=== PATIENT | female | born 1995 | race American Indian/Alaskan Native ===

== ENCOUNTER 2021-10-25 13:48 | Outpatient (CLI) | payer MEDICAID ==
[2021-10-25] MEDS ORDERED: LACTATED RINGERS 1,000 ML IV ONE (14:09)
[2021-10-25] MEDS ORDERED: ONDANSETRON 4 MG/2 ML INJ IV ONE (14:10)
[2021-10-25 16:46] LABS: Bacteria,Urine 1+ /HPF (Negative); Bilirubin,Urine NEG (Negative); Blood,Urine NEG (Negative); Calcium Oxalate Crystals,Urine 1+; Color,Urine Yellow (Yellow); Mucus,Urine FEW /HPF; Urobilinogen,Urine < 2.0 mg/dL (<2.0)
[2021-10-25 17:08] VITALS: BP 116/56
== END 2021-10-25 17:22 | disposition home or self-care (01) ==
LOC: TRG 13:48 → APU 13:49 → TRG 17:22
PROVIDERS: ATTEND Obstetrics & Gynecology
DX: O21.2 Late vomiting of pregnancy (principal); O26.892 Other specified pregnancy related conditions, second trimester; R42 Dizziness and giddiness; R51.9 Headache, unspecified; M79.89 Other specified soft tissue disorders; Z3A.22 22 weeks gestation of pregnancy
CPT/HCPCS: 59025; 81001; 96365; J2405; J7120; 96360; 96374

== ENCOUNTER 2021-12-03 18:49 | Outpatient (CLI) | payer MEDICAID ==
[2021-12-03 19:36] VITALS: BP 111/72
[2021-12-03] MEDS ORDERED: LACTATED RINGERS 500 ML IV ONE (20:00)
[2021-12-03 20:47] LABS: Bacteria,Urine 1+ /HPF (Negative); Bilirubin,Urine NEG (Negative); Blood,Urine NEG (Negative); Color,Urine Yellow (Yellow); Mucus,Urine 1+ /HPF; Urobilinogen,Urine < 2.0 mg/dL (<2.0)
== END 2021-12-03 21:21 | disposition home or self-care (01) ==
LOC: TRG 18:49 → LD 18:50 → TRG 21:21
PROVIDERS: ATTEND Obstetrics & Gynecology
DX: O26.893 Other specified pregnancy related conditions, third trimester (principal); Z3A.28 28 weeks gestation of pregnancy
CPT/HCPCS: 81001

== ENCOUNTER 2022-01-13 13:58 | Outpatient (CLI) | payer MEDICAID ==
[2022-01-13] MEDS ORDERED: ONDANSETRON 4 MG/2 ML INJ IV SCH (14:15)
[2022-01-13] MEDS ORDERED: ALBUTEROL 2.5 MG/3 ML NEBU IH SCH (14:16)
[2022-01-13] MEDS ORDERED: LACTATED RINGERS 1,000 ML IV ONE (14:30)
[2022-01-13 14:51] VITALS: BP 118/70
== END 2022-01-13 14:36 | disposition home or self-care (01) ==
LOC: TRG 13:58 → APU 14:00 → TRG 14:36
PROVIDERS: ATTEND Student in an Organized Health Care Education/Training Program
DX: O62.9 Abnormality of forces of labor, unspecified (principal); J45.909 Unspecified asthma, uncomplicated; Z3A.33 33 weeks gestation of pregnancy
CPT/HCPCS: 59025; 94640; 96365; 96366; J2405; J7120; 96360; 96374

== ENCOUNTER 2022-01-30 00:37 | Inpatient (IN) | payer MEDICAID ==
[2022-01-30] MEDS ORDERED: LACTATED RINGERS 1,000 ML IV SCH ×3 (02:00→17:45)
--- NOTE | 2022-01-30 04:30 | Ultrasound Report ---
US OB BPP wo non-stress, US OB bpp ea add exam INDICATION / CLINICAL INFORMATION: Twin gestation - 36wks, GHTN COMPARISON: None available. TECHNIQUE: Using transcutaneous probe, biophysical profile was performed with scarring of bioph ysical variables including respiratory motion, motion, posture and tone, and qualit ative amniotic fluid volume. FINDINGS: TWIN A: BREATHING MOVEMENT = 2 GROSS BODY MOVEMENT = 2 TONE = 2 QUALITATIVE AMNIOTIC FLUID VOLUME = 2 TOTAL BIOPHYSICAL SCORE = 8/8 Fetus lies in cephalic position. heart rate 147. TWIN B: BREATHING MOVEMENT = 2 GROSS BODY MOVEMENT = 2 TONE = 2 QUALITATIVE AMNIOTIC FLUID VOLUME = 2 TOTAL BIOPHYSICAL SCORE = 8/8 Fetus lies in breech position. Heart rate 147. IMPRESSION: 1. Twin gestation. Each fetus scores 8/8. Signer Name: Berto Sparks II, MD Signed: 01/30/2022 4:25 AM Workstation Name: [id number]
[2022-01-30 04:41] LABS: Hematocrit 35.3 % (30.3-42.9); Hemoglobin 11.1 gm/dl (10.1-14.3); Mean Corpuscular HGB Conc 31 % (30-34); Mean Corpuscular Volume 83 fl (79-97); Platelet Count 237 K/mm3 (140-440); Red Blood Count 4.26 M/mm3 (3.65-5.03); Red Cell Distribution Width 17.8 % (13.2-15.2)
[2022-01-30 04:58] LABS: Alanine Aminotransferase 12 units/L (7-56); Uric Acid 5.2 mg/dL (3.5-7.6)
[2022-01-30 05:55] LABS: Bilirubin,Urine NEG (Negative); Blood,Urine NEG (Negative); Color,Urine Straw (Yellow); Urobilinogen,Urine < 2.0 mg/dL (<2.0)
[2022-01-30 06:12] LABS: Bacteria,Urine 1+ /HPF (Negative)
[2022-01-30] MEDS ORDERED: ONDANSETRON 4 MG/2 ML INJ IV PRN ×3 (06:38→18:38)
[2022-01-30] MEDS ORDERED: ACETAMINOPHEN 325 MG TAB PO PRN ×2 (06:38→17:54)
[2022-01-30] MEDS ORDERED: DOCUSATE SODIUM 100 MG CAP PO PRN (06:38)
--- NOTE | 2022-01-30 06:43 | History and Physical Report ---
History of Present Illness Date of examination: 01/30/22 Chief complaint: presented to triage for contractions History of present illness: EDC Calculations by LMP: 02/25/2022 Past History : 2 Term Births: 0 Premature Births: 0 Living Children: 0 Para: 0 Mult. Births: 0 Prev : 0 Aborta: 1 Elect. Ab: 1 Spont. Ab: 0 Ectopics: 0 # 1 Delivery date: 08/2016 Weeks Gestation: 6 Delivery type: EAB Past Medical History: Reviewed history from 04/01/2021 and no changes required: Asthma Past Surgical History: Reviewed history from 05/07/2018 and no changes required: D&C:EAB Tonsillectomy (04/2018) Social History: Patient is single Student [employer] Smoking History: Patient has never smoked. 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: Student at [employer] Genetic History Congenital Heart Defect: Mom: no Dad: no Diandra Disease: Mom: no Dad: no Thalassemia Mom: yes Dad: no Comments: Aunt Neural Tube Defect Mom: no Dad: no Down's Syndrome Mom: no Dad: no Jay-Sachs Mom: no Dad: no Sickle Cell Disease/Trait Mom: yes Dad: no Comments: Mother trait Hemophilia Mom: no Dad: no Muscular Dystrophy Mom: no Dad: no Cystic Fibrosis Mom: no Dad: no Jerome Chorea Mom: no Dad: no Mental Retardation Mom: no Dad: no Fragile X Mom: no Dad: no Other Genetic/Chromosomal Disorder Mom: no Dad: no Child w/other defect Mom: no Dad: no Enviromental Exposures Xray Exposure: yes Medication, drug, or alcohol use since LMP: no Exposure to Cat Liter: no Active Medications (reviewed today): promethazine 25 mg tablet (promethazine) Take 1 tablet by mouth every six hours as needed for nausea ACYCLOVIR 400 MG ORAL TABLET (ACYCLOVIR) 1 po tid x 5days prn Current Allergies (reviewed today): No known allergies Past History Past Medical History: other (see HPI) Past Surgical History: other (see HPI) 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) Family/Genetic History: other (see HPI) Social history: no significant social history - Obstetrical History Expected Date of Delivery: 02/25/22 Actual Gestation: 36 Week(s) 2 Day(s) : 2 Para: 0 Hx # Term Pregnancies: 0 Number of Pregnancies: 0 Spontaneous Abortions: 0 Induced : 1 Number of Living Children: 0 Medications and Allergies Allergies Allergy/AdvReac Type Severity Reaction Status Date / Time peanut AdvReac Severe Anaphylaxis Verified 10/25/21 14:08 shellfish derived AdvReac Severe Anaphylaxis Verified 10/25/21 14:08 Active Meds: Active Medications Acetaminophen (Acetaminophen 325 Mg Tab) 650 mg PO Q4H PRN PRN Reason: Pain MILD(1-3)/Fever >100.5/RODGERS Docusate Sodium (Docusate Sodium 100 Mg Cap) 100 mg PO Q12H PRN PRN Reason: Constipation Famotidine (Famotidine 20 Mg/2 Ml Inj) 20 mg IV QDAY [facility] Lactated Ringer's (Lactated Ringers) 1,000 mls @ 150 mls/hr IV DIRECT CHRISTIANO Last Admin: 01/30/22 04:32 Dose: 150 mls/hr Labetalol HCl (Labetalol 200 Mg Tab) 200 mg PO BID [facility] Multivitamins/Iron/Calcium ( Dxf19-An Fumarate-Folic Acid Vit Tab) 1 each PO QDAY [facility] Ondansetron HCl (Ondansetron 4 Mg/2 Ml Inj) 4 mg IV Q6H PRN PRN Reason: Nausea And Vomiting Sodium Chloride (Sodium Chloride 0.9% 10 Ml Flush Syringe) 10 ml IV PRN PRN PRN Reason: LINE FLUSH Review of Systems All systems: negative - Vital Signs Vital signs: Vital Signs Temp Pulse BP 98.6 F 75 142/90 01/30/22 01:20 01/30/22 01:20 01/30/22 01:20 Temp Pulse Resp BP Pulse Ox 98.6 F 72 146/83 100 01/30/22 01:20 01/30/22 06:11 01/30/22 06:03 01/30/22 06:11 - Physical Exam Breasts: Positive: normal Cardiovascular: Regular rate Lungs: Positive: Normal air movement Abdomen: Positive: normal appearance, soft Genitourinary (Female): Positive: normal external genitalia, normal perenium Vulva: both: normal Vagina: Positive: normal moisture Uterus: Positive: normal size, normal contour Anus/Rectum: Positive: normal perianal skin Extremities: Positive: edema (1+ bilateral feet) Deep Tendon Reflex Grade: Normal +2 - Obstetrical FHR: category 1 (x2) Uterine Contraction Monitor Mode: External Cervical Dilatation: 1 (per triage nurse) Uterine Contraction Pattern: Irregular Uterine Tone Measurement Phase: Contraction Uterine Contraction Intensity: Mild Results Result Diagrams: 01/30/22 04:15 01/30/22 04:15 Abnormal lab results 01/30/22 01/30/22 Range/Units 04:15 04:15 MCH 26 L (28-32) pg RDW 17.8 H (13.2-15.2) % Creatinine 0.5 L (0.6-1.2) mg/dL Lactate Dehydrogenase 293 H (91-180) units/L All other labs normal. Assessment and Plan 27y/o presented to triage @ 36w2d, di/di twin gestation with ctx. she is scheduled for a c/s 02/09 per [facility] recommendations. Pt seeing [facility] for complicated by htn (dx during this ) and twin gestation. Initially she presented for ctx, cervix is not laboring. both babies CAT 1, BPP 8/8. b/p noted 140's/80-90's. Pre-e labs NL with exception of small proteinuria. Plan reviewed with Dr. Huntley to observe in hospital x 24hrs for severe range b/p or cerebral s/s of pre-e. All questions addressed. pt verbalizes understanding. - Patient Problems (1) 36 weeks gestation of Current Visit: Yes Status: Acute (2) HTN (hypertension) Current Visit: Yes Status: Acute Qualifiers: Hypertension type: primary hypertension Qualified Code(s): I10 - Essential (primary) hypertension (3) Twin gestation, dichorionic/diamniotic (two placentae, two amniotic sacs) Current Visit: Yes Status: Acute
[2022-01-30] MEDS: PRENATAL VIT27-FE FUMARATE-FOLIC ACID VIT TAB PO SCH (10:16)
[2022-01-30] MEDS: FAMOTIDINE 20 MG/2 ML INJ IV SCH (10:17)
[2022-01-30] MEDS ORDERED: FAMOTIDINE 20 MG/2 ML INJ IV NR (10:37)
[2022-01-30] MEDS ORDERED: BICITRA ORAL LIQD 30ML PO NR (10:37)
[2022-01-30] MEDS ORDERED: METOCLOPRAMIDE 10 MG/2 ML INJ IV NR (10:37)
--- NOTE | 2022-01-30 10:37 | Event Note ---
Date: 01/30/22 b/p's now noted 160's/100's, pt c/o visual changes. Dr. Huntley made aware and plan made to proceed with c/s. is enroute to [facility].
[2022-01-30] MEDS ORDERED: OXYTOCIN DRIP 30 UNITS/500 ML BAG IV SCH ×2 (11:00→18:00)
[2022-01-30] MEDS ORDERED: ceFAZolin/Water 2 GM/20 ML 2 GM/20 ML SYRINGE IV NR (11:00)
--- NOTE | 2022-01-30 11:48 | Event Note ---
Date: 01/30/22 Patient states she desires to proceed with delivery d/t malpresentation twin B. Alternatives to delivery explained. Risk associated with delivery were discussed, including but not limited to, bleeding that may require blood transfusion, infection that may be life threatening, injury to adjacent organs specifically bowel or bladder that may require further surgeries, or major vascular injury. She was also informed that when she has had a delivery she may require repeat deliveries for all subsequent pregnancies. Questions were encouraged and answered, consents were reviewed and signed. Patient voiced understanding and desires to proceed with delivery.
[2022-01-30] MEDS ORDERED: CARBOPROST TROMETHAMINE 250 MCG/1 ML INJ IM PRN (11:52)
[2022-01-30] MEDS ORDERED: BUPIVACAINE/PF (0.25%) 2.5 MG/ML 30 ML VIAL INFILTRATI ONE (15:07)
[2022-01-30] MEDS ORDERED: SODIUM CHLORIDE 0.9% 100 ML ONE (15:07)
[2022-01-30] MEDS ORDERED: GLYCOPYRROLATE 0.4 MG/2 ML INJ ONE (15:07)
[2022-01-30] MEDS ORDERED: PHENYLEPHRINE/NS 1,000 MCG/10 ML SYRINGE (OR USE) IV ONE (15:07)
[2022-01-30] MEDS ORDERED: ONDANSETRON 4 MG/2 ML INJ ONE (15:07)
[2022-01-30] MEDS ORDERED: KETOROLAC 30 MG/1 ML INJ ONE (15:08)
[2022-01-30] MEDS ORDERED: dexAMETHasone 20 MG/5 ML VIAL ONE (15:08)
[2022-01-30] MEDS ORDERED: ePHEDrine SULFATE 50 MG/1 ML INJ ONE (16:47)
[2022-01-30] MEDS ORDERED: ceFAZolin/STERILE WATER 2 GM/20 ML SYRINGE IV ONE (16:50)
[2022-01-30] MEDS ORDERED: WATER FOR IRRIG STERILE 1,500 ML BOTTLE IR ONE (17:03)
[2022-01-30] MEDS ORDERED: SODIUM CHLORIDE 0.9% IRR 1,500 ML BOTTLE IR ONE (17:03)
[2022-01-30] MEDS ORDERED: LANOLIN/ZINC/DIMETHICONE (LANSINOH) 7 GM TP PRN (17:43)
[2022-01-30] MEDS ORDERED: NALOXONE 0.4 MG/1 ML INJ IV PRN ×2 (17:43→18:38)
[2022-01-30] MEDS ORDERED: WITCH HAZEL/ GLYCERIN PAD TP PRN (17:43)
[2022-01-30] MEDS ORDERED: MAGNESIUM SULFATE 4 GM/100 ML BAG IV ONE (17:43)
[2022-01-30] MEDS ORDERED: HYDROCORTISONE 25 MG RECTAL SUPP PR PRN (17:46)
[2022-01-30] MEDS ORDERED: SIMETHICONE 80 MG CHEW TAB PO PRN (17:46)
[2022-01-30] MEDS ORDERED: MAGNESIUM HYDROXIDE (MOM) ORAL LIQD UDC PO PRN (17:46)
[2022-01-30] MEDS ORDERED: IBUPROFEN 600 MG TAB PO PRN (17:46)
[2022-01-30] MEDS ORDERED: PROMETHAZINE 25 MG RECT SUPP PR PRN ×2 (17:46→18:38)
[2022-01-30] MEDS ORDERED: SENNOSIDES 8.6 MG TAB PO PRN (17:46)
[2022-01-30] MEDS ORDERED: MORPHINE 2 MG/1 ML INJ IV PRN (17:46)
[2022-01-30] MEDS ORDERED: D5W/LACTATED RINGERS 1,000 ML IV SCH (18:00)
--- NOTE | 2022-01-30 18:03 | Operative Report ---
Operative Report Operative Report: Date of operation: 01/30/2022 Pre-operative diagnosis: 1. Intrauterine at 36 weeks gestational age 2. Chronic hypertension with superimposed 3. Twin gestation with malpresentation of twin B, patient desires elective primary 4. BMI 37.8 kg/m2 Post-operative diagnosis: 1. Intrauterine at 36 weeks gestational age 2. Chronic hypertension with superimposed 3. Twin gestation with malpresentation of twin B, patient desires elective primary 4. BMI 37.8 kg/m2 Procedure name(s): Primary low transverse uterine incision Surgeon: Hermila Huntley MD District Associate Judge: Yoselyn Larkin Anesthesia: Combined spinal epidural EBL: 700 mL Urine output: 300 mL of clear urine out at the end of the procedure Fluids: 1100 mL Findings: Twin A: Liveborn male infant weight 5 Lbs. 4 oz. Apgars of 8 and 6 at one and 5 minutes; 7 at 10 minutes Twin B: Liveborn male weight 5 pounds 4 oz. Apgars of 7 and 7 at 1 and 5 minutes Indications: Thi.a 27-year-old female with known dichorionic diamniotic twin gestation who also has chronic hypertension. She presented to the hospital complaining of contractions however she is noted to have slightly elevated blood pressures. She was admitted for observation during observation she had blood pressures in severe range. Patient was already scheduled for primary for malpresentation in 2 weeks. Due to severe range blood pressures and chronic hypertension the decision was made to proceed with delivery. Procedure: Patient was taking to the operating room. Combined spinal epidural anesthesia was placed. Patient was then prepped and draped in the usual sterile fashion Timeout was performed. Once an appropriate level of anesthesia was noted, a Pfannenstiel incision was made and extended the fascia which was incised and extended lateral direction. The overlying fascia was sharply dissected away from the underlying rectus muscles in the superior inferior direction. The midline was entered bluntly. Bladder blade was placed. Vesicouterine fold was incised with blunt dissection bladder flap was created. A transverse incision was made in the lower uterine segment and extended superolateral direction with finger fractionation. Clear fluid was noted. Twin A was delivered from the cephalic LOT position, with spontaneous cry and excellent tone. Mouth and nose bulb suctioned. Cord was doubly clamped and cut infant was given to the resuscitation team present. Amniotic membranes were ruptured on twin B. Clear fluid noted. Twin B was palpated to be transverse back up and delivered from the cephalic position ROT, mouth and nose were bulb suction. Infant had spontaneous cry and excellent tone. Placentas were delivered. The uterus was exteriorized and cleaned of any further placental tissue and products of conception. Uterine incision was approximated using 0 Vicryl in a running interlocking stitch followed by further suture of 0 Vicryl in imbricating fashion. When hemostasis was noted the uterus was allowed back in the pelvic cavity. Pelvis was irrigated with warm normal saline. Once hemostasis was noted the rectus muscles were approximated using 0 Vicryl interrupted simple stitches 3. Once hemostasis was noted the fascia was approximated using 0 Vicryl simple running stitch. The incision was irrigated with warm saline, once hemostasis as noted, the subcuticular adipose tissue was reapproximated using 3-0 Vicryl in a simple running fashion. Skin was approximated using 4-0 Vicryl on a Paul needle in a subcuticular manner. Counts were correct x3. Patient tolerated the procedure well, she was taken to recovery room in stable condition.
[2022-01-30] MEDS ORDERED: PROMETHAZINE 25 MG TAB PO PRN (18:38)
[2022-01-30] MEDS ORDERED: HYDROmorphone 1 MG/1 ML INJ IV PRN (18:38)
[2022-01-30] MEDS ORDERED: MORPHINE 4 MG/1 ML INJ IV PRN (18:38)
--- NOTE | 2022-01-30 18:42 | Anesthesia Consultation ---
Anesthesia Consult and Med Hx Date of service: 01/30/22 - Airway Anesthetic Teeth Evaluation: Good ROM Head & Neck: Adequate Mental/Hyoid Distance: Adequate Mallampati Class: Class II Intubation Access Assessment: Probably Good - Pulmonary Exam CTA: Yes - Cardiac Exam Cardiac Exam: RRR - Pre-Operative Health Status ASA Pre-Surgery Classification: ASA2 Proposed Anesthetic Plan: Spinal - Pulmonary Hx Smoking: No Hx Asthma: Yes Hx Respiratory Symptoms: No SOB: No COPD: No Home Oxygen Therapy: No Hx Pneumonia: No Hx Sleep Apnea: No - Cardiovascular System Hx Hypertension: No Hx Coronary Artery Disease: No Hx Heart Attack/AMI: No Hx Angina: No Hx Percutaneous Transluminal Coronary Angioplasty (PTCA): No Hx Cardia Arrhythmia: No Hx Pacemaker: No Hx Internal Defibrillator: No Hx Valvular Heart Disease: No Hx Heart Murmur: No Hx Peripheral Vascular Disease: No - Central Nervous System Hx Neuromuscular Disorder: No Hx Seizures: No CVA: No Hx Back Pain: No Hx Psychiatric Problems: No - Gastrointestinal Hx Ulcer: No Hx Gastroesophageal Reflux Disease: No - Endocrine Hx Renal Disease: No Hx End Stage Renal Disease: No Hx Cirrhosis: No Hx Liver Disease: No Hx Insulin Dependent Diabetes: No Hx Non-Insulin Dependent Diabetes: No Hx Thyroid Disease: No Hx Hypothyroidism: No Hx Hyperthyroidism: No - Hematic Hx Anemia: No Hx Sickle Cell Disease: No - Other Systems Hx Alcohol Use: No Hx Substance Use: No Hx Cancer: No Hx Obesity: No
--- NOTE | 2022-01-30 18:43 | Anesthesia Day of Surgery ---
Anesthesia Day of Surgery - Day of Surgery Patient Examined: Yes Patient H&P Reviewed: Yes Patient is NPO: Yes Beta Blockers: No Cardiac Clearance: No Pulmonary Clearance: No Samir's Test: N/A
[2022-01-30] MEDS ORDERED: hydrALAZINE 20 MG/1 ML INJ ONE (19:24)
--- NOTE | 2022-01-30 20:18 | Progress Note ---
Spinal Anesthesia Block - Spinal Anesthesia Block Start Time: 16:22 Stop Time: 16:38 Performed by:: MIKIE GUTIERREZ Procedure: Patient placed in sitting position with monitors applied. Timeout performed immediately before start of procedure. Prep/drape in usual sterile fashion. Skin localized 3 mL 1% lidocaine at L[4]-L[5] interspace. 25g spinal needle advanced into intrathecal space until clear, free flowing CSF noted. 1.6cc 0.75% hyperbaric bupivacaine + 0.5mcg Precedex injected into intrathecal space and spinal needle removed. Patient tolerated procedure well. No immediate complications noted.
--- NOTE | 2022-01-30 20:24 | Progress Note ---
Regional Anesthesia Block - Regional Anesthesia Block Start Time: 17:47 Stop Time: 17:58 Performed By:: MIKIE GUTIERREZ Procedure: Patient consented for TAP block for post surgical pain management. Patient identified, monitors placed, and time out performed. TAP identified bilaterally via ultrasound. Skin prepped bilaterally with [chlorhexidine] and [22g stimuplex] needle advanced to the TAP. Marcaine 0.25% 30ml+8mg decadron injected under ultrasound guidance on the [left] side. [Marcaine 0.25% 30ml+8mg decadron] injected under ultrasound guidance on the [right] side. Negative aspiration every 5mL, No change in heart rate or rhythm. Patient tolerated the procedure well. No apparent complications seen.
[2022-01-30] MEDS: MAGNESIUM SULFATE 40GM/1000ML 40 GM/1,000 ML BAG IV SCH (21:00)
[2022-01-30] MEDS: MORPHINE 4 MG/1 ML INJ IV PRN (22:20)
[2022-01-31] MEDS: ceFAZolin/NS 1 GM/50 ML 1 GM/50 ML BAG IV SCH ×2 (02:10→12:44)
[2022-01-31] MEDS: oxyCODONE /ACETAMINOPHEN 5-325MG TAB PO PRN ×2 (03:18→11:21)
[2022-01-31 08:32] LABS: Hematocrit 35.1 % (30.3-42.9); Hemoglobin 10.9 gm/dl (10.1-14.3)
--- NOTE | 2022-01-31 08:58 | Progress Note ---
Assessment and Plan - Patient Problems (1) delivery delivered Current Visit: Yes Status: Acute Plan to address problem: Patient with complaints of nausea. Courtney denies any vomiting. We will continue normal postoperative care. (2) HTN (hypertension) Current Visit: Yes Status: Acute Qualifiers: Hypertension type: primary hypertension Qualified Code(s): I10 - Essential (primary) hypertension (3) Twin gestation, dichorionic/diamniotic (two placentae, two amniotic sacs) Current Visit: Yes Status: Acute (4) Pre-eclampsia superimposed on chronic hypertension Current Visit: Yes Status: Acute Plan to address problem: Patient currently receiving 24-hour post magnesium sulfate. Labs are and blood pressure control are reasonable with present management. Subjective - Subjective Date of service: 01/31/22 Principal diagnosis: Postop day 1 section, twin gestation, chronic hypertension will pr Interval history: Patient's blood pressures been reasonable and she is currently on magnesium sulfate and taking labetalol blood pressures Patient reports: pain well controlled, nauseated, no flatus, no bowel movement [place]: doing well Objective - Vital Signs Latest vital signs: Vital Signs Temp Pulse Resp BP BP Pulse Ox Pulse Ox 01/31/22 08:52 69 100 01/31/22 08:47 72 98 01/31/22 08:42 78 99 01/31/22 08:39 75 109/70 01/31/22 08:37 80 98 01/31/22 08:32 69 99 01/31/22 08:27 67 98 01/31/22 08:22 67 98 01/31/22 08:17 71 99 01/31/22 08:12 71 99 01/31/22 08:07 83 99 01/31/22 08:02 82 99 01/31/22 07:57 72 99 01/31/22 07:52 74 98 01/31/22 07:47 79 99 01/31/22 07:42 69 100 01/31/22 07:37 76 100 01/31/22 07:32 79 98 01/31/22 07:27 73 100 01/31/22 07:22 79 100 01/31/22 07:18 64 131/79 01/31/22 07:17 77 99 01/31/22 07:12 80 97 01/31/22 07:07 70 100 01/31/22 07:02 72 98 06 06:57 68 100 06/ 06:52 75 99 06 06:47 68 98 06 06:42 65 99 06 06:37 74 99 06 06:32 70 99 06 06:27 68 98 06 06:22 69 99 06 06:18 98.4 F 78 18 121/67 121/67 99 06 06:17 84 98 06 06:12 69 98 06 06:07 66 98 06 06:01 63 96 06 05:56 63 96 06 05:51 66 96 01/31/22 05:46 64 97 06 05:41 67 99 06 05:36 62 98 06 05:31 64 97 06 05:26 61 98 06 05:21 66 98 01/31/22 05:18 67 16 109/65 109/65 98 06 05:16 64 97 06 05:11 62 96 06 05:06 65 97 01/31/22 05:01 64 97 01/31/22 04:56 66 97 01/31/22 04:51 64 98 06 04:46 60 98 01/31/22 04:41 66 97 06 04:36 68 99 01/31/22 04:31 72 97 01/31/22 04:26 62 98 01/31/22 04:20 66 96 06 04:18 64 110/67 06 04:15 66 97 06 04:10 68 98 06 04:05 65 98 06 04:00 77 99 06 03:55 65 98 06 03:50 63 99 0622 03:45 83 98 0622 03:40 66 99 06/20/22 03:35 70 100 06/20/22 03:30 80 100 0620/22 03:25 68 100 062022 03:20 67 100 0622 03:18 98.4 F 76 18 123/77 123/72 100 06/2022 03:15 67 100 06 03:10 72 100 06 03:05 94 H 100 01/31/22 03:00 92 H 99 06 02:55 76 100 01/31/22 02:50 64 99 06 02:45 64 100 01/31/22 02:40 92 H 100 01/31/22 02:36 84 94 01/31/22 02:35 67 100 06 02:30 81 99 01/31/22 02:25 79 99 06 02:20 71 100 01/31/22 02:18 68 16 115/68 115/68 100 01/31/22 02:15 69 100 01/31/22 02:10 80 99 01/31/22 02:05 81 99 01/31/22 02:00 71 100 01/31/22 01:55 71 100 01/31/22 01:50 69 99 01/31/22 01:45 72 100 01/31/22 01:40 70 100 01/31/22 01:35 71 100 01/31/22 01:30 75 100 01/31/22 01:25 66 100 01/31/22 01:20 89 99 01/31/22 01:19 98.4 F 71 18 112/72 112/72 100 100 01/31/22 01:15 96 H 100 01/31/22 01:10 84 99 01/31/22 01:05 69 100 01/31/22 01:00 82 99 01/31/22 00:55 77 99 01/31/22 00:50 68 99 22 00:45 69 99 01/31/22 00:40 67 100 06 00:35 70 99 01/31/22 00:30 67 99 99 01/31/22 00:25 82 99 01/31/22 00:20 73 99 0622 00:18 78 162/95 062022 00:17 98.6 F 78 18 162/95 99 062022 00:15 71 99 0620 00:10 74 99 0620 00:05 67 99 01/31/22 00:00 72 98 01/30/22 23:55 73 98 01/30/22 23:50 73 98 01/30/22 23:45 66 100 01/30/22 23:40 80 100 01/30/22 23:35 72 99 01/30/22 23:30 73 99 01/30/22 23:25 74 100 01/30/22 23:20 78 99 01/30/22 23:18 80 140/70 01/30/22 23:15 77 99 01/30/22 23:10 74 99 01/30/22 23:05 77 99 01/30/22 23:00 82 99 01/30/22 22:55 78 100 01/30/22 22:50 86 99 01/30/22 22:45 86 99 01/30/22 22:40 77 100 01/30/22 22:35 94 H 100 01/30/22 22:30 71 99 01/30/22 22:25 75 100 01/30/22 22:20 96 H 18 136/74 136/74 100 01/30/22 22:18 77 136/74 01/30/22 22:15 68 99 01/30/22 22:10 93 H 99 01/30/22 22:05 80 100 01/30/22 22:00 85 98 01/30/22 21:55 76 99 01/30/22 21:50 77 100 01/30/22 21:45 70 100 01/30/22 21:40 88 99 01/30/22 21:35 82 100 01/30/22 21:30 76 99 01/30/22 21:25 91 H 99 01/30/22 21:20 97 H 100 01/30/22 21:17 85 139/74 01/30/22 21:15 86 99 01/30/22 21:10 79 99 01/30/22 21:05 83 100 01/30/22 21:00 83 98 01/30/22 20:55 99 H 99 01/30/22 20:50 86 99 01/30/22 20:46 75 133/65 01/30/22 20:45 86 100 01/30/22 20:40 90 100 01/30/22 20:35 88 99 01/30/22 20:30 88 100 01/30/22 20:25 102 H 100 01/30/22 20:20 76 100 01/30/22 20:16 98.6 F 81 18 139/71 100 100 01/30/22 19:00 74 24 149/93 100 01/30/22 18:55 69 17 159/95 100 01/30/22 18:50 76 17 156/90 100 01/30/22 18:45 69 16 162/81 100 01/30/22 18:41 67 17 147/73 100 01/30/22 18:35 77 22 138/88 100 01/30/22 18:30 81 17 159/86 100 01/30/22 18:25 88 15 156/97 100 01/30/22 18:20 90 16 153/88 100 01/30/22 18:16 82 20 137/76 100 01/30/22 18:13 97.6 F 89 16 139/91 100 01/30/22 15:09 73 137/81 01/30/22 14:55 82 98 01/30/22 14:50 79 97 01/30/22 14:45 84 97 01/30/22 14:40 85 97 01/30/22 14:35 74 98 01/30/22 14:30 79 97 01/30/22 14:25 88 96 01/30/22 14:20 90 99 01/30/22 14:15 83 98 01/30/22 14:10 78 99 01/30/22 14:05 89 100 01/30/22 14:00 84 98 01/30/22 13:55 98 H 97 01/30/22 13:50 79 97 01/30/22 13:47 84 138/76 01/30/22 13:45 104 H 98 01/30/22 13:40 93 H 99 01/30/22 13:35 90 97 01/30/22 13:31 80 146/76 01/30/22 13:30 78 97 01/30/22 13:25 80 98 01/30/22 13:20 86 98 01/30/22 13:17 81 134/79 01/30/22 13:15 77 98 01/30/22 13:10 78 98 01/30/22 13:05 84 99 01/30/22 13:01 83 153/79 01/30/22 13:00 81 99 01/30/22 12:55 85 99 01/30/22 12:50 74 99 01/30/22 12:45 77 124/66 100 01/30/22 12:40 88 99 01/30/22 12:35 75 100 01/30/22 12:30 77 98 01/30/22 12:25 76 100 100 01/30/22 12:16 93 H 139/74 01/30/22 12:00 87 145/68 01/30/22 11:36 76 100 01/30/22 11:31 92 H 134/87 99 01/30/22 11:05 77 100 01/30/22 11:00 76 143/99 100 01/30/22 10:55 82 100 01/30/22 10:50 75 100 01/30/22 10:45 77 99 01/30/22 10:40 74 99 01/30/22 10:35 87 98 01/30/22 10:30 71 169/108 100 01/30/22 10:25 83 99 01/30/22 10:20 84 100 01/30/22 10:16 81 165/110 01/30/22 10:15 90 165/110 99 01/30/22 09:48 101 H 97 01/30/22 09:43 96 H 98 01/30/22 09:38 96 H 99 01/30/22 09:33 101 H 98 01/30/22 09:28 73 99 01/30/22 09:23 73 99 01/30/22 09:18 79 99 01/30/22 09:13 92 H 99 01/30/22 09:08 74 100 01/30/22 09:03 85 100 01/30/22 08:58 77 99 Intake and Output 01/30/22 01/31/22 01/31/22 22:59 06:59 14:59 Intake Total 1150 640 Output Total 1900 4150 Balance -750 -3510 Intake: IV 1100 Oral 50 640 Output: Urine 1900 4150 Indwelling Catheter 200 2050 Uretheral (Banks) 400 2100 Other: Total, Intake Amount 50 200 Total, Output Amount 200 700 - Exam Breasts: Present: deferred Cardiovascular: Present: Regular rate Lungs: Present: Normal air movement Abdomen: Present: normal appearance Uterus: Present: firm, fundal height below umbilicus Extremities: Present: edema Incision: Present: dry, dressed - Labs Labs: Abnormal lab results 06/20/22 Range/Units 08:07 Magnesium 5.90 H (1.7-2.3) mg/dL
[2022-01-31] MEDS: PRENATAL VIT27-FE FUMARATE-FOLIC ACID VIT TAB PO SCH (11:08)
[2022-01-31] MEDS ORDERED: ceFAZolin/NS 1 GM/50 ML 1 GM/50 ML BAG IV SCH (12:30)
[2022-01-31] MEDS: MAGNESIUM SULFATE 40GM/1000ML 40 GM/1,000 ML BAG IV SCH (12:56)
[2022-01-31] MEDS: IBUPROFEN 800 MG TAB PO PRN ×2 (14:24→23:56)
[2022-01-31] MEDS ORDERED: TETANUS,DIPH,PERTUSS(ACELL) VACCINE 0.5 ML SYRINGE IM ONE (17:46)
[2022-01-31] MEDS: MORPHINE 4 MG/1 ML INJ IV PRN (21:42)
[2022-02-01] MEDS: MORPHINE 4 MG/1 ML INJ IV PRN (03:34)
--- NOTE | 2022-02-01 08:14 | Progress Note ---
Assessment and Plan patient resting with eyes closed, babies in NICU dong well according to patient. She reports chills when pumping. reassured patient that she has been afebrile, sometimes you can feel feverish hot flashes/chills during breast feeding/letdown. encouraged patient to continue pumping and to increase activity today. Dressing D&I - rn to remove after shower. VSSARamo, H&H 10.9/35.1. - Patient Problems (1) delivery delivered Current Visit: Yes Status: Acute Plan to address problem: continue postop pathway advance activity and diet as tolerated Anticipate d/c home tomorrow (2) Pre-eclampsia superimposed on chronic hypertension Current Visit: Yes Status: Acute Plan to address problem: Continue labetalol 600 q6hrs as pressures seem well controlled at this time. Subjective - Subjective Date of service: 02/01/22 Principal diagnosis: Postop day 2 s/p c/s twins; superimposed pre-e chtn Interval history: EDC Calculations by LMP: 02/25/2022 Past History : 2 Term Births: 0 Premature Births: 0 Living Children: 0 Para: 0 Mult. Births: 0 Prev : 0 Aborta: 1 Elect. Ab: 1 Spont. Ab: 0 Ectopics: 0 # 1 Delivery date: 08/2016 Weeks Gestation: 6 Delivery type: EAB Past Medical History: Reviewed history from 04/01/2021 and no changes required: Asthma Past Surgical History: Reviewed history from 05/07/2018 and no changes required: D&C:EAB Tonsillectomy (04/2018) Social History: Patient is single Student [employer] Smoking History: Patient has never smoked. 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: Student at [employer] Genetic History Congenital Heart Defect: Mom: no Dad: no Diandra Disease: Mom: no Dad: no Thalassemia Mom: yes Dad: no Comments: Aunt Neural Tube Defect Mom: no Dad: no Down's Syndrome Mom: no Dad: no Jay-Sachs Mom: no Dad: no Sickle Cell Disease/Trait Mom: yes Dad: no Comments: Mother trait Hemophilia Mom: no Dad: no Muscular Dystrophy Mom: no Dad: no Cystic Fibrosis Mom: no Dad: no Jay Chorea Mom: no Dad: no Mental Retardation Mom: no Dad: no Fragile X Mom: no Dad: no Other Genetic/Chromosomal Disorder Mom: no Dad: no Child w/other defect Mom: no Dad: no Enviromental Exposures Xray Exposure: yes Medication, drug, or alcohol use since LMP: no Exposure to Cat Liter: no Active Medications (reviewed today): promethazine 25 mg tablet (promethazine) Take 1 tablet by mouth every six hours as needed for nausea ACYCLOVIR 400 MG ORAL TABLET (ACYCLOVIR) 1 po tid x 5days prn Current Allergies (reviewed today): No known allergies Patient reports: appetite normal, voiding normally, pain well controlled, flatus, ambulating normally, no dizzy ambulation, no nauseated Pearblossom: in NICU Objective - Vital Signs Latest vital signs: Vital Signs Temp Pulse Resp BP BP Pulse Ox Pulse Ox 02/01/22 07:28 97 02/01/22 05:08 97.9 F 70 20 129/75 95 02/01/22 00:08 97.7 F 60 22 123/70 98 01/31/22 21:22 97.9 F 71 20 118/77 97 01/31/22 21:15 97 01/31/22 20:33 98 01/31/22 20:27 64 100 01/31/22 20:22 67 100 01/31/22 20:18 64 130/74 01/31/22 20:17 66 99 01/31/22 20:12 61 100 01/31/22 20:07 64 100 01/31/22 20:02 67 99 01/31/22 19:57 80 98 01/31/22 19:52 67 100 01/31/22 19:47 62 100 01/31/22 19:42 61 100 01/31/22 19:37 63 98 01/31/22 19:32 63 98 01/31/22 19:30 97.8 F 62 18 113/64 113/64 100 100 06 19:27 63 100 06 19:22 71 99 06 19:18 79 112/58 01/31/22 19:17 63 98 06 19:12 64 98 06 19:07 63 98 06 19:02 65 99 01/31/22 18:57 63 99 01/31/22 18:52 65 99 01/31/22 18:47 64 98 06 18:42 65 99 01/31/22 18:37 63 99 01/31/22 18:32 71 99 01/31/22 18:27 69 100 01/31/22 18:22 63 98 01/31/22 18:18 67 100/57 01/31/22 18:17 63 98 01/31/22 18:12 63 99 01/31/22 18:07 63 99 01/31/22 18:02 68 99 01/31/22 17:59 79 92 01/31/22 17:57 76 98 01/31/22 17:52 71 99 01/31/22 17:47 62 99 01/31/22 17:42 62 99 01/31/22 17:37 61 99 01/31/22 17:32 63 98 01/31/22 17:27 77 100 01/31/22 17:22 80 98 01/31/22 17:18 82 122/74 01/31/22 17:17 85 100 01/31/22 17:12 74 99 01/31/22 17:07 64 98 01/31/22 17:02 63 97 01/31/22 16:57 63 98 01/31/22 16:52 62 98 01/31/22 16:47 61 97 06 16:42 66 100 01/31/22 16:37 72 99 01/31/22 16:32 63 99 01/31/22 16:27 61 97 01/31/22 16:22 64 98 06 16:18 65 109/66 01/31/22 16:17 61 97 06 16:12 61 97 01/31/22 16:07 62 97 01/31/22 16:02 63 97 01/31/22 16:00 97.0 F L 01/31/22 15:57 62 97 01/31/22 15:52 67 97 01/31/22 15:47 64 97 01/31/22 15:42 66 98 01/31/22 15:37 63 98 01/31/22 15:32 68 99 01/31/22 15:27 63 100 01/31/22 15:22 65 100 01/31/22 15:18 64 132/81 01/31/22 15:17 67 99 01/31/22 15:12 67 99 01/31/22 15:07 73 100 01/31/22 15:02 69 98 01/31/22 14:57 74 99 01/31/22 14:52 63 98 01/31/22 14:47 77 99 01/31/22 14:42 72 99 01/31/22 14:37 65 99 01/31/22 14:32 64 100 01/31/22 14:27 69 99 01/31/22 14:22 67 99 01/31/22 14:18 63 124/80 01/31/22 14:17 71 100 01/31/22 14:12 72 99 01/31/22 14:07 75 99 01/31/22 14:02 67 100 01/31/22 13:57 80 99 01/31/22 13:52 64 98 01/31/22 13:47 63 98 01/31/22 13:42 80 99 01/31/22 13:37 64 100 01/31/22 13:32 64 100 01/31/22 13:27 71 100 01/31/22 13:22 66 100 01/31/22 13:18 69 127/69 01/31/22 13:17 67 100 01/31/22 13:12 64 97 01/31/22 13:07 65 98 01/31/22 13:02 65 97 01/31/22 12:57 66 98 01/31/22 12:52 68 98 01/31/22 12:47 71 98 01/31/22 12:42 67 98 01/31/22 12:37 65 100 01/31/22 12:32 79 100 01/31/22 12:27 75 100 01/31/22 12:22 71 99 01/31/22 12:18 65 133/82 01/31/22 12:17 74 99 062022 12:12 72 100 0622 12:07 63 98 01/31/22 12:02 63 98 22 11:57 62 98 22 11:52 64 99 06 11:47 63 100 22 11:42 64 98 01/31/22 11:37 63 99 01/31/22 11:32 70 99 01/31/22 11:27 62 99 01/31/22 11:22 66 100 22 11:18 61 130/81 0622 11:17 61 99 06 11:12 68 100 06 11:08 71 142/78 01/31/22 11:07 66 142/78 100 01/31/22 11:02 74 98 01/31/22 10:57 82 97 01/31/22 10:52 68 100 01/31/22 10:47 66 100 01/31/22 10:42 68 98 01/31/22 10:37 73 99 01/31/22 10:32 65 100 01/31/22 10:27 64 100 01/31/22 10:22 68 100 22 10:17 68 100 01/31/22 10:12 72 100 01/31/22 10:07 67 99 01/31/22 10:02 68 99 01/31/22 09:57 67 100 01/31/22 09:52 77 100 01/31/22 09:47 69 100 01/31/22 09:42 68 100 01/31/22 09:37 68 100 01/31/22 09:32 71 100 01/31/22 09:27 74 99 2022 09:22 81 99 22 09:18 84 117/73 062022 09:17 83 100 01/31/22 09:12 77 100 01/31/22 09:07 77 99 01/31/22 09:02 74 99 01/31/22 08:57 76 100 22 08:52 69 100 01/31/22 08:47 72 98 01/31/22 08:42 78 99 01/31/22 08:39 75 109/70 01/31/22 08:37 80 98 01/31/22 08:32 69 99 01/31/22 08:27 67 98 01/31/22 08:22 67 98 01/31/22 08:17 71 99 01/31/22 08:12 71 99 Intake and Output 01/31/22 02/01/22 02/01/22 23:59 07:59 15:59 Intake Total 800 240 Output Total 2850 1150 Balance -2049 - Intake: Oral 800 Intake, Free Water 240 Output: Urine 2850 1150 Indwelling Catheter 2850 Void 1150 Other: Total, Intake Amount 300 Total, Output Amount 500 700 - Exam Breasts: Present: normal Cardiovascular: Present: Regular rate Lungs: Present: Clear to auscultation, Normal air movement Abdomen: Present: normal appearance, soft Vulva: both: normal Uterus: Present: normal, firm, fundal height at umbilicus Extremities: Present: normal Deep Tendon Reflex Grade: Normal +2 Incision: Present: normal, dry, dressed - Labs Labs: Abnormal lab results 01/31/22 01/31/22 01/31/22 Range/Units 08:07 10:59 18:26 Magnesium 5.90 H 6.20 H 6.40 H (1.7-2.3) mg/dL
[2022-02-01] MEDS: oxyCODONE /ACETAMINOPHEN 5-325MG TAB PO PRN ×2 (11:33→17:54)
[2022-02-01] MEDS: PRENATAL VIT27-FE FUMARATE-FOLIC ACID VIT TAB PO SCH (11:34)
[2022-02-01] MEDS: FAMOTIDINE 20 MG/2 ML INJ IV SCH (11:34)
[2022-02-01] MEDS ORDERED: FAMOTIDINE 20 MG TAB PO NR (16:14)
[2022-02-01] MEDS: IBUPROFEN 800 MG TAB PO PRN (22:36)
[2022-02-02] MEDS: IBUPROFEN 800 MG TAB PO PRN ×2 (05:34→16:36)
--- NOTE | 2022-02-02 08:47 | Discharge Summary ---
Providers - Providers Date of Admission: 01/30/22 07:40 Date of discharge: 02/02/22 Attending physician: ERLIN CORDERO 01/30/22 17:46 Consult to Motion Picture Scene Builder [CONS] Routine Reason For Exam: Primary care physician: ERLIN CORDERO Hospitalization Reason for admission: Twin c/s d/t pre-e superimposed htn Condition: Good Pertinent studies: postop H&H 10.9/35.1 Procedures: primary c/s Hospital course: uncomplicated c/s and postop course Disposition: 01 HOME / SELF CARE / HOMELESS Final Discharge Diagnosis (Prints w/discharge instructions): postop c/s Time spent for discharge: 25 - Discharge Diagnoses (1) delivery delivered Status: Acute (2) Pre-eclampsia superimposed on chronic hypertension Status: Acute Core Measure Documentation - Palliative Care Palliative Care/ Comfort Measures: Not Applicable - Core Measures Any of the following diagnoses?: none Exam - Constitutional Vitals: Temp Pulse Resp BP Pulse Ox 97.9 F 57 L 18 110/70 99 02/02/22 05:01 02/02/22 05:01 02/02/22 06:34 02/02/22 05:01 02/02/22 05:01 General appearance: Present: no acute distress, well-nourished - EENT Eyes: Present: PERRL ENT: hearing intact, clear oral mucosa - Neck Neck: Present: supple, normal ROM - Respiratory Respiratory effort: normal Respiratory: bilateral: CTA - Cardiovascular Rhythm: regular Heart Sounds: Absent: rub, click - Extremities Extremities: No edema Peripheral Pulses: within normal limits - Abdominal General gastrointestinal: Present: soft, non-tender, non-distended, normal bowel sounds Female genitourinary: Present: normal - Integumentary Integumentary: Present: clear, warm, dry - Musculoskeletal Musculoskeletal: gait normal, strength equal bilaterally - Psychiatric Psychiatric: appropriate mood/affect, intact judgment & insight - Neurologic Neurologic: CNII-XII intact, moves all extremities - Additional findings Additional findings: incision D&I, lochia scant, fundus firm Plan Activity: advance as tolerated Diet: regular Wound: open to air, keep clean and dry Follow up with: ERLIN CODRERO MD [Primary Care Provider] - 7 Days (Congratulations! Please call [phone] to schedule your incision check and your sons' circumcision. Bring EMLA cream to their appointment and wait for instructions. Call for any questions or concerns.) Prescriptions: Docusate Sodium [Colace] 100 mg PO BID PRN #30 capsule PRN Reason: Constipation Lidocain2.5%/Prilocai2.5% [Emla] 5 gm TP ONCE #1 tube Ferrous Sulfate [Feosol 325 MG tab] 325 mg PO BID #90 tablet labetaloL [Labetalol 200mg TAB] 200 mg PO BID #60 tab Ibuprofen [Motrin 800 MG tab] 800 mg PO TID PRN #30 tablet PRN Reason: Pain oxyCODONE /ACETAMINOPHEN [Percocet 5/325 mg] 1 - 2 tab PO Q6HR PRN #14 tablet PRN Reason: Pain
[2022-02-02] MEDS: oxyCODONE /ACETAMINOPHEN 5-325MG TAB PO PRN (09:37)
[2022-02-02] MEDS: PRENATAL VIT27-FE FUMARATE-FOLIC ACID VIT TAB PO SCH (10:53)
[2022-02-02 14:24] VITALS: BP 126/76
== END 2022-02-02 18:00 | disposition home or self-care (01) | DRG 765 ==
LOC: TRG 00:37 → APU 00:39 → TRG 06:38 → APU 07:40 → OBSVTOIN 07:40 → APU 16:09 → LD 01-31 06:54 → OB 01-31 20:52
PROVIDERS: ADMIT Obstetrics & Gynecology; ATTEND Obstetrics & Gynecology
PROC: 10D00Z1 Extraction of Products of Conception, Low, Open Approach (ICD-10-PCS; principal; 2022-01-30)
PROC: 3E0T3BZ Introduction of Anesthetic Agent into Peripheral Nerves and Plexi, Percutaneous Approach (ICD-10-PCS; 2022-01-30)
PROC: 3E0234Z Introduction of Serum, Toxoid and Vaccine into Muscle, Percutaneous Approach (ICD-10-PCS; 2022-01-31)
DX: O11.4 Pre-existing hypertension with pre-eclampsia, complicating childbirth (principal); O30.043 Twin pregnancy, dichorionic/diamniotic, third trimester; O32.9XX2 Maternal care for malpresentation of fetus, unspecified, fetus 2; Z3A.36 36 weeks gestation of pregnancy; Z20.822 Contact with and (suspected) exposure to COVID-19; Z37.2 Twins, both liveborn; Z23 Encounter for immunization; O99.52 Diseases of the respiratory system complicating childbirth; J45.909 Unspecified asthma, uncomplicated; Z91.010 Allergy to peanuts; Z91.013 Allergy to seafood
CPT/HCPCS: 36415; 76819; 81001; 82565; 83615; 83735; 84450; 84460; 84550; 85014; 85018; 85027; 86850; 86900; 86901; 99211; G0378; J1815; J3490; J7121; G0463; J0690; J1100; J1885; J2270; J2370; J2405; J3475; J7120; U0003